=== PATIENT | male | born 1995 | race Caucasian/White ===

== ENCOUNTER 2017-01-03 15:57 | Emergency (ER) | payer OTHER ==
[~2017-01-03] VITALS: Ht 180.3 cm; Wt 86.2 kg
[2017-01-03 18:17] VITALS: BP 115/63
--- NOTE | 2017-01-04 09:21 | REP ---
RIGHT ANKLE SERIES, COMPLETE: 01/03/2017 CLINICAL HISTORY: Trauma, swelling. FINDINGS: There is prominent soft tissue swelling about the lateral malleolus and anterior to the ankle. Distal tibia and fibula without fracture. The mortise joint is symmetric and preserved with no talar dome osteochondral defect or subluxation of the talus. The subtalar joints are intact. No heel spurs. Talonavicular and calcaneocuboid joints normal. IMPRESSION: Prominent soft tissue swelling anterolateral to the ankle without visible or displaced fracture, avulsion, disruption of the mortise joint or other acute finding. Signed by Candelario Huang MD 01/04/2017 05:06 P
== END 2017-01-03 18:25 | disposition home or self-care (01) ==
LOC: M ED 17:09
DX: S93.401A Sprain of unspecified ligament of right ankle, initial encounter (principal); X50.0XXA Overexertion from strenuous movement or load, initial encounter; Y92.89 Other specified places as the place of occurrence of the external cause; Y93.61 Activity, american tackle football; Y99.8 Other external cause status; Z88.8 Allergy status to other drugs, medicaments and biological substances